=== PATIENT | male | born 1935 | race Caucasian/White ===

== ENCOUNTER → 2016-12-23 | Outpatient (CLI) | payer MEDICARE, OTHER ==
[2016-12-23 09:42] LABS: MEAN CORPUSCULAR HEMOGLOBIN 30.6 PG (26.0-34.0); MEAN CORPUSCULAR HGB CONC 34.5 g/dL (31.0-37.0); MEAN CORPUSCULAR VOLUME 89 FL (80-100); MEAN PLATELET VOLUME 9.8 FL (6.0-9.5); PLATELET COUNT 254 10^3uL (150-450); WHITE BLOOD COUNT 9.38 10^3uL (4.0-11.0)
[2016-12-23 09:46] LABS: BAND NEUTROPHILS % 0 % (0-6); EOSINOPHILS % 4 % (0-4); LYMPHOCYTES # 2.6 #; MONOCYTES # 0.5 #; MONOCYTES % 6 % (3-11); RBC MORPH NORMAL (NORMAL); SEGMENTED NEUTROPHILS % 51 % (51-67); TOTAL CELLS COUNTED 100
== END ==
LOC: LAB 09:12
PROVIDERS: ATTEND Family Medicine
DX: K52.9 Noninfective gastroenteritis and colitis, unspecified (principal)
CPT/HCPCS: 36415; 80048; 85007; 85027; 87507

== ENCOUNTER 2017-02-07 06:58 | Day surgery (SDC) | payer MEDICARE, OTHER ==
[~2017-02-07] VITALS: Ht 177.8 cm; Wt 86.0 kg
[~2017-02-07 06:58] MED LIST: LACTATED RINGERS 1,000 ML IV SCH; SODIUM CHLORIDE FLUSH 3 ML SYR IV PRN
[2017-02-07 07:15] VITALS: BP 145/57
[2017-02-07] MEDS ORDERED: ALFENTANIL 500 MCG/ML (ALFENTA) 5 ML AMP IV ONE (07:33)
[2017-02-07] MEDS ORDERED: MIDAZOLAM 2 MG/2 ML (VERSED) VIAL ONE (07:33)
[2017-02-07] MEDS ORDERED: PROPOFOL 20 ML IV ONE (07:33)
[2017-02-07] MEDS ORDERED: FLUMAZENIL (ROMAZICON) 0.1 MG/ML 5 ML VIAL ONE (08:26)
[2017-02-07 08:31] VITALS: BP 119/55
[2017-02-07 10:16] VITALS: BP 123/62
[2017-02-07 10:48] VITALS: BP 125/57
[2017-02-07 11:15] VITALS: BP 129/54
== END 2017-02-07 11:27 | disposition home or self-care (01) ==
LOC: ASC 06:58
PROVIDERS: ATTEND Surgery
DX: Z09 Encounter for follow-up examination after completed treatment for conditions other than malignant neoplasm (principal); Z86.010 Personal history of colon polyps; I10 Essential (primary) hypertension; I48.91 Unspecified atrial fibrillation; C91.11 Chronic lymphocytic leukemia of B-cell type in remission; G47.33 Obstructive sleep apnea (adult) (pediatric); Z79.01 Long term (current) use of anticoagulants; Z98.0 Intestinal bypass and anastomosis status; Z90.49 Acquired absence of other specified parts of digestive tract
CPT/HCPCS: 36415; 45378; 84132; 85610; J2250; J7120